=== PATIENT | male | born 1960 | race Caucasian/White ===

== ENCOUNTER → 2020-08-19 06:55 | Outpatient (CLI) | payer BC, SELFPAY ==
--- NOTE | ~2020-08-19 | MR_ITS ---
EXAMINATION: MR lumbar spine wo con EXAM DATE: 08/19/2020 08:44 INDICATION: Low back pain radiating down left leg, sudden onset. TECHNIQUE: Multi-sequential, multiplanar MR images of the lumbar spine were obtained without contrast . Sagittal T1, T2, T2 fat saturation images. Axial T2 weighted images. There is no prior study for comparison. FINDINGS: Paraspinal soft tissue is unremarkable. There are scattered focal signal abnormalities cons istent with hemangiomata, otherwise without focal suspicious marrow signal abnormalities. There is mo derate to severe loss of the L5-S1 disc height with endplate degenerative signal change and 4 mm retr olisthesis. The vertebral bodies are otherwise aligned. Mild to moderate loss of the L2-3 disc height and mild at L1-2. The conus medullaris terminates at the T12-L1 level and has normal signal intensit y and morphology. Level by level evaluation: T12-L1: Disc does not extend beyond the endplate margin. Facet arthropathy: None. Neural foraminal stenosis: No stenosis. Central canal stenosis: No stenosis. L1-L2: There is a mild diffuse disc bulge. Facet arthropathy: None. Neural foraminal stenosis: No stenosis. Central canal stenosis: No stenosis. L2-L3: There is a moderate diffuse disc bulge. Facet arthropathy: Mild. Neural foraminal stenosis: Mild bilateral. Central canal stenosis: Mild. L3-L4: There is a mild to moderate diffuse disc bulge. Facet arthropathy: Mild. Neural foraminal stenosis: Mild to moderate bilateral. Central canal stenosis: Mild. L4-L5: There is a mild to moderate diffuse disc bulge. There is a far left annular fissure, with sma ll amount of discogenic material extruded into the neural foramina contributing to the stenosis at th is level. Facet arthropathy: Mild to moderate. Neural foraminal stenosis: Moderate to severe left, mild to moderate right. Central canal stenosis: Mild to moderate. L5-S1: There is a moderate to large diffuse disc bulge. Facet arthropathy: Mild. Neural foraminal stenosis: Moderate to severe left, moderate right. Central canal stenosis: Mild to moderate. IMPRESSION: 1. L4-5 far left extrusion into neural foramina causing mass effect on exiting L4 nerve root. 2. L5-S1 grade 1 retrolisthesis, moderate to severe disc disease. Reviewed, dictated and finalized at location A. [employer]
== END ==
PROVIDERS: PCP Internal Medicine; Visit Provider Internal Medicine
DX: M47.27 Other spondylosis with radiculopathy, lumbosacral region (principal); M48.07 Spinal stenosis, lumbosacral region
CPT/HCPCS: 72148

== ENCOUNTER 2024-04-25 00:36 | Day surgery (SDC) | payer BC, OTHER, SELFPAY ==
[2024-04-04 10:11] VITALS: BMI 31.9
[2024-04-25 09:05] VITALS: BP 125/83; PULSE 53; RESP 18; TEMP 36.5; O2SAT 96
[2024-04-25 09:16] LABS: Glucose Point of Care 124 mg/dl (65-105)
[2024-04-25] MEDS: LACTATED RINGERS 1,000 ML 150 ML IV CONT (09:22)
--- NOTE | 2024-04-25 10:35 | P.PNAN_ITS ---
Anes - Initial Pre Proc Eval Procedure: Operation Date: 04/25/24 10:30 Proposed Procedures p Colonoscopy - Tevin López MD Date/Time: 04/25/24 10:35 Surgeon: Tevin López MD Pre Op Diagnosis: Pers. Hx. colon Polyps Patient Data Age: 64 Gender: M Height: 1.8 m Weight: 107.9 kg Last Vital Signs Temp 36.5 C 04/25/24 09:05 Pulse 53 L 04/25/24 09:05 Resp 18 04/25/24 09:05 BP 125/83 04/25/24 09:05 Pulse Ox 96 04/25/24 09:05 O2 Del Method Room Air 04/25/24 09:05 Allergies Allergy/AdvReac Type Severity Reaction Status Date / Time codeine Allergy Unknown Verified 04/04/24 10:39 coconut cooked Allergy Unknown Uncoded 04/04/24 10:39 Home Medications Medication Instructions Recorded Confirmed Type atorvastatin 20 mg tablet 20 mg PO DAILY 04/04/24 04/04/24 History metformin 500 mg tablet 500 mg PO BID 04/04/24 04/04/24 History Laboratory Tests 04/25/24 09:14 POC Capillary Glucose 124 H mg/dl (65-105) Patient hx anesthesia problems: none Family hx anesthesia problems: none Results Review: All pre-operative results and documents have been reviewed as part of the pre- operative evaluation. [facility] Social History Social History Alcohol intake: former Substance use: former Substance use type: former substance user Other substance usage details: in past Living arrangements: with family Spiritual care concerns: No Anes - Eval Final PreProcedure Day of Procedure 04/25/24 10:35 Patient weight: obese Heart: regular rate and rhythm Lungs: clear to auscultation Airway: Mallampati scale class II Neurological: alert and oriented Last oral intake: >/= 8 hours ASA classification: III Emergent: no Anesthetic plan: proceed Anesthesia type and monitoring: general GIVS and standard monitoring Results Review: All pre-operative results and documents have been reviewed as part of the pre- operative evaluation. Informed Consent: The patient's anesthetic plan and its attendant risks and benefits were discussed with the patient/family/POA. Questions were solicited and answers provided to the satisfaction of the patient/family/POA.
--- NOTE | 2024-04-25 11:00 | PM.HPGS ---
History of Present Illness History of Present Illness Consent: Risks, benefits, and alternatives have been discussed and questions answered. Patient agrees to proceed with procedure. Chief complaint: Pers. Hx. colon Polyps Narrative: Jamar Berman is a 64 year old male here for his third colonoscopy, had one polyp when had first colonoscopy, last one 7 years ago without polyp. Review of Systems Review of Systems: All systems reviewed & are unremarkable except as noted in HPI and below PMFSH Past Medical History Medical History (Updated 04/25/24 @ 11:01 by Tevin López MD) Colon polyp Social History Social History Alcohol intake: former Substance use: former Substance use type: former substance user Other substance usage details: in past Living arrangements: with family Spiritual care concerns: No Meds Home Medications and Allergies Home Medications Medication Instructions Recorded Confirmed Type atorvastatin 20 mg tablet 20 mg PO DAILY 04/04/24 04/04/24 History metformin 500 mg tablet 500 mg PO BID 04/04/24 04/04/24 History Allergies Allergy/AdvReac Type Severity Reaction Status Date / Time codeine Allergy Unknown Verified 04/04/24 10:39 coconut cooked Allergy Unknown Uncoded 04/04/24 10:39 Vital Signs Vital Signs - 24 hr 04/25/24 09:05 Temperature 97.7 F Pulse Rate 53 L Respiratory Rate 18 Blood Pressure 125/83 Pulse Oximetry 96 Oxygen Delivery Room Air Exam Const: General: comfortable and no acute distress HENMT: Face/Nose/Sinus: Normal nares present Eyes: General: appearance normal, both eyes and all related structures Neck: Neck: no JVD Resp: Auscultation: clear to auscultation bilaterally Cardio: Rate: regular rate Rhythm: regular rhythm GI: Inspection: non-distended GI Palp: Yes Soft to palpation Skin: General skin exam: normal color Neuro: General: gait normal Speech: normal speech Extrem: General: normal to inspection Psych: Mental Status: mental status grossly normal Assessment and Plan Assessment and plan (1) Colon polyp: Code(s): K63.5 - Polyp of colon Status: Acute Assessment and Plan: colonoscopy
[2024-04-25 11:24] VITALS: BP 108/64; PULSE 51; RESP 17; O2SAT 99
[2024-04-25 11:34] VITALS: BP 102/63; PULSE 52; RESP 23; O2SAT 97
[2024-04-25 11:44] VITALS: BP 121/70; PULSE 53; RESP 19; O2SAT 98
== END 2024-04-25 11:52 | disposition home or self-care (01) ==
PROVIDERS: PCP Internal Medicine; Visit Provider Internal Medicine Gastroenterology
PROC: 0DJD8ZZ Inspection of Lower Intestinal Tract, Via Natural or Artificial Opening Endoscopic (ICD-10-PCS; CPT 45378; principal; 2024-04-25 10:30)
DX: Z12.11 Encounter for screening for malignant neoplasm of colon (principal); D12.3 Benign neoplasm of transverse colon; K57.30 Diverticulosis of large intestine without perforation or abscess without bleeding; E66.9 Obesity, unspecified; Z68.33 Body mass index [BMI] 33.0-33.9, adult; Z79.84 Long term (current) use of oral hypoglycemic drugs
CPT/HCPCS: 45385; 82948; 88305; J2001; J2704; J7120